=== PATIENT | male | born 1965 | race Caucasian/White ===

== ENCOUNTER 2022-12-28 14:15 | Emergency (ER) | payer OTHER, SELFPAY ==
[2022-12-28 14:17] VITALS: BP 187/99; PULSE 86; RESP 18; TEMP 37.4; O2SAT 95; BMI 24.3
[2022-12-28 14:47] LABS: COVID19 -Nasal RAPID Negative (Negative)
--- NOTE | 2022-12-28 15:08 | ED_ITS ---
HPI - URI/Sore Throat <Chyna Lauren PA-C - Last Filed: 12/28/22 15:17> General Chief Complaint: Upper Respiratory Symptoms Stated Complaint: fever/cough/earache/ T-3 Time Seen by Provider: 12/28/22 14:21 Source: patient Mode of arrival: Ambulatory History of Present Illness HPI Narrative: 57-year-old male presents to the ED with 3 weeks of URI symptoms. Patient states that his symptoms started with a cold and a cough. Patient states that he started experiencing right-sided ear pain 4 days prior to arrival, along with fever and chills. Patient states that he has a dry cough that has persisted. Patient denies chest pain, shortness of breath, nausea, vomiting, abdominal pain, dysuria, diarrhea, lightheadedness, dizziness, syncope. Related Data Previous Rx's Medication Instructions Recorded amoxicillin 875 mg tablet 875 mg PO Q12H 7 days #14 tabs 12/28/22 benzonatate 200 mg capsule 200 mg PO TID PRN cough #30 caps 12/28/22 Allergies Allergy/AdvReac Type Severity Reaction Status Date / Time No Known Drug Allergies Allergy Verified 12/28/22 14:25 Review of Systems <Chyna Lauren PA-C - Last Filed: 12/28/22 15:17> Review of Systems ROS Unobtainable: All systems reviewed & are unremarkable except as noted in HPI and below Constitutional Constitutional: Reports chills, Denies fatigue, Reports fever(s), Denies frequent falls, Denies lethargy and Denies weakness Eyes Eyes: Denies change in vision, Denies eye discharge, Denies irritation and Denies loss of vision ENT Ears, Nose, Mouth, and Throat: Denies change in voice, Denies dizziness, Reports otalgia (right), Denies neck pain, Denies sore throat and Denies throat swelling Cardiovascular Cardiovascular: Denies chest pain, Denies irregular heart rhythm, Denies lightheadedness, Denies palpitations, Denies dyspnea, Denies dyspnea on exertion and Denies orthopnea Respiratory Respiratory: Reports cough, Denies dyspnea, Denies dyspnea on exertion and Denies wheezing Gastrointestinal Gastrointestinal: Denies abdominal pain, Denies change in bowel habits, Denies diarrhea, Denies nausea and Denies vomiting Genitourinary Genitourinary: Denies hematuria, Denies flank pain, Denies urinary incontinence and Denies urinary urgency Musculoskeletal Musculoskeletal: Denies back pain, Denies muscle weakness, Denies neck pain, Denies numbness and Denies tingling Integumentary/Breasts Skin/Breast: Denies pruritus, Denies erythema, Denies rash and Denies wounds Neurologic Neurologic: Denies behavioral changes, Denies confusion, Denies dizziness, De nies frequent falls, Denies loss of vision, Denies numbness, Denies tingling and Denies weakness Psychiatric Psychiatric: Denies anxiety, Denies behavioral changes, Denies confusion, Denies depression, Denies homicidal ideation and Denies suicidal ideation Endocrine Endocrine: Denies fatigue, Denies flushing and Denies palpitations Hematologic/Lymphatic Hematologic/Lymphatic: Denies easy bruising Allergic/Immunologic Allergic/Immunologic: Denies urticaria, Denies throat swelling and Denies wheezing Patient History <Chyna Lauren PA-C - Last Filed: 12/28/22 15:17> Social History Smoking Status: Current every day smoker Smoking Status: Current every day smoker alcohol intake frequency: 3 or more drinks per day Substance Use Type: does not use Exam <Chyna Lauren PA-C - Last Filed: 12/28/22 15:17> Narrative Exam Narrative: Const General:?cooperative, healthy appearing and comfortable [facility] Head:?normal to inspection Ears:?hearing grossly normal bilaterally; right tympanum appears erythematous and bulging; L tympanum normal Nose:?external nose normal Face and sinus:?normal facial exam and sinuses nontender Mouth:?oral mucosae normal Throat:?posterior oropharynx normal Eyes General:?appearance normal, both eyes and all related structures Neck Neck:?normal visual inspection and no lymphadenopathy noted Resp Effort & Inspection:?normal respiratory effort Auscultation:?clear to auscultation bilaterally Cardio Rate:?regular rate Rhythm:?regular rhythm Neuro General:?patient alert, patient awake and patient oriented x3 Initial Vital Signs Initial Vital Signs: Vital Signs Temperature 99.3 F 12/28/22 14:17 Pulse Rate 86 12/28/22 14:17 Respiratory Rate 18 12/28/22 14:17 Blood Pressure 187/99 H 12/28/22 14:17 Pulse Oximetry 95 12/28/22 14:17 Oxygen Delivery Method 12/28/22 14:17 <Tc Ivory DO - Last Filed: 12/28/22 17:54> Initial Vital Signs Initial Vital Signs: Vital Signs Temperature 99.3 F 12/28/22 14:17 Pulse Rate 86 12/28/22 14:17 Respiratory Rate 18 12/28/22 14:17 Blood Pressure 187/99 H 12/28/22 14:17 Pulse Oximetry 95 12/28/22 14:17 Oxygen Delivery Method 12/28/22 14:17 Course <Chyna Lauren PA-C - Last Filed: 12/28/22 15:17> Orders Ordered: ED Orders 12/28/22 14:22 COVID19 -Nasal RAPID/Pre-Proc Stat Vital Signs Vital signs: Vital Signs - 8 hr 12/28/22 14:17 Temperature 99.3 F Pulse Rate 86 Respiratory Rate 18 Blood Pressure 187/99 H Pulse Oximetry 95 Oxygen Delivery Method Room Air <Tc Ivory DO - Last Filed: 12/28/22 17:54> Orders Ordered: ED Orders 12/28/22 14:22 COVID19 -Nasal RAPID/Pre-Proc Stat Vital Signs Vital signs: Vital Signs - 8 hr 12/28/22 14:17 Temperature 99.3 F Pulse Rate 86 Respiratory Rate 18 Blood Pressure 187/99 H Pulse Oximetry 95 Oxygen Delivery Method Room Air MDM - URI/Sore Throat <Chyna Lauren PA-C - Last Filed: 12/28/22 15:17> Lab Data Labs: Lab Results 12/28/22 Range/Units 14:22 SARS-CoV-2 (PCR) Negative (Negative) MDM Narrative Medical decision making narrative: 57-year-old male presents to the ED with 3 weeks of URI symptoms. Concern for viral URI versus acute otitis media versus other. Covid-19 negative. Physical exam consistent with right-sided acute otitis media. Will treat with amoxicillin. Will treat cough with Tessalon Perles. Recommend supportive measures with ibuprofen/Tylenol, good hydration. ED return precautions discussed with patient. Patient verbalized understanding. Medical records reviewed: Yes <DO Alli Holland Last Filed: 12/28/22 17:54> Lab Data Labs: Lab Results 12/28/22 Range/Units 14:22 SARS-CoV-2 (PCR) Negative (Negative) Discharge Plan Departure Patient Disposition: Home Clinical Impression: Otitis media Instructions: Middle Ear Infection Activity Restrictions/Additional Instructions: You were evaluated in the ED today for right ear pain, fever, chills, cough. You have been diagnosed with a middle ear infection of the right ear for which you are being prescribed antibiotics. Please take those as directed. You were also being prescribed Tessalon Perles for your cough. You may take other [id number] medicines such as Tylenol/ibuprofen for symptom relief as well. Continue to stay well hydrated. Return to the ED if you have any chest pain, shortness of breath, ear pain worsens. Prescriptions: New benzonatate 200 mg capsule 200 mg PO TID PRN (Reason: cough) Qty: 30 0RF amoxicillin 875 mg tablet 875 mg PO Q12H 7 Days Qty: 14 0RF Referrals: Willie Guerrero MD [Primary Care Provider] - Stand Alone Forms: Patient Portal/API <Tc Ivory DO - Last Filed: 12/28/22 17:54> Cosign ED Attending Cosignature Attestation: I was immediately available in the department for consultation. This documentation has been reviewed and I agree with assessment and plan. Supervised by Tc Ivory DO
== END 2022-12-28 15:17 | disposition home or self-care (01) ==
PROVIDERS: Emergency Provider Student in an Organized Health Care Education/Training Program; PCP Internal Medicine
DX: H66.91 Otitis media, unspecified, right ear (principal); Z20.822 Contact with and (suspected) exposure to COVID-19
CPT/HCPCS: 87635; 99281; 99282; C9803

== ENCOUNTER 2023-01-05 06:51 | Emergency (ER) | payer OTHER, SELFPAY ==
[2023-01-05 07:04] VITALS: BP 182/95; PULSE 62; RESP 17; TEMP 36.1; O2SAT 96; BMI 24.3
== END 2023-01-05 07:59 | disposition left against medical advice (07) ==
PROVIDERS: Emergency Provider Emergency Medicine; PCP Internal Medicine
CPT/HCPCS: 99281

== ENCOUNTER → 2023-07-13 08:23 | Outpatient (CLI) | payer OTHER, SELFPAY ==
[2023-07-13 09:03] LABS: Add Manual Diff / Slide Review NO; Basophils Absolute Auto 0 /uL (0-100); Basophils Percent Auto 0.7 % (0-2); Eosinophils Absolute Auto 100 /uL (0-450); Eosinophils Percent Auto 2.6 % (2-4); Hematocrit 41.4 % (41-53); Hemoglobin 14.5 g/dL (13.5-17.5); Lymphocytes Absolute Auto 1300 /uL (1100-4500); Lymphocytes Percent Auto 26.2 % (25-40); Mean Corpuscular Hemoglobin 32.7 PG (26-34); Mean Corpuscular Volume 93.7 fL (80-100); Monocytes Absolute Auto 400 /uL (0-900); Monocytes Percent Auto 8.8 % (3-14); Neutrophils Absolute Auto 3000 /uL (1500-7000); Neutrophils Percent Auto 61.7 % (50-75); Platelet Count 243 X10^3/uL (150-400); Red Blood Cell Count 4.42 X10^6/uL (4.5-5.9); White Blood Cell Count 4.9 X10^3/uL (4.5-11.0)
[2023-07-13 09:37] LABS: Alanine Aminotransferase 28 IU/L (<50); Albumin 4.5 g/dL (3.5-5.0); Albumin Globulin Ratio 1.7 (1.0-2.8); Alkaline Phosphatase 46 U/L (38-126); Aspartate Aminotransferase 30 IU/L (17-59); BUN Creatinine Ratio 11.8 (6-22); Bilirubin Total 0.4 mg/dL (0.2-1.3); Blood Urea Nitrogen 9 mg/dL (9-20); Calcium 9.1 mg/dL (8.4-10.2); Carbon Dioxide 21 mmol/L (22-32); Chloride 105 mmol/L (98-107); Cholesterol 289 mg/dL (140-199); Estimated Glomerular Filt Rate > 60 mL/min (>60); Globulin 2.7 g/dL (1.7-4.1); Glucose 91 mg/dL (70-100); HDL Cholesterol 61 mg/dL (40-60); HEMOLYSIS < 15 (0-50); LDL Cholesterol Calculated 193 mg/dL (<100); Potassium 4.2 mmol/L (3.4-5.1); Sodium 140 mmol/L (137-145); Total Protein 7.2 g/dL (6.3-8.2); Triglycerides 175 mg/dL (35-150)
[2023-07-13 09:58] LABS: Prostate Specific Antigen 1.45 ng/mL (0.10-4.00)
[2023-07-14 18:30] LABS: HIV 1 & 2 Ab/Ag 4th Gen Combo NEGATIVE (NEGATIVE)
[2023-07-14 18:34] LABS: Urine N gonorrhoeae NOT DETECTED
[2023-07-14 19:02] LABS: Urine Chlamydia NOT DETECTED
== END ==
PROVIDERS: PCP Family Medicine; Referring Provider Family Medicine; Visit Provider Family Medicine
DX: Z00.00 Encounter for general adult medical examination without abnormal findings (principal); Z11.3 Encounter for screening for infections with a predominantly sexual mode of transmission; E78.5 Hyperlipidemia, unspecified
CPT/HCPCS: 36415; 80053; 80061; 84153; 85025; 87389; 87491; 87522; 87591

== ENCOUNTER → 2023-09-05 16:31 | Outpatient (CLI) | payer OTHER, SELFPAY ==
--- NOTE | 2023-09-05 16:32 | DI.RAD.S_ITS ---
PROCEDURE: XR LUMBAR SPINE MIN 4V INDICATIONS: eval back pain TECHNIQUE: 5 views of the lumbar spine were acquired, including bilateral oblique views. COMPARISON: None. FINDINGS: Bones: 5 nonrib-bearing vertebrae are present. Mild right convexity curvature centered at L3-L4. Possible minimal wedging L5 superior and inferior endplates and or sequela of degenerative change. Moderate multilevel degenerative changes with disc height loss, endplate spurring, and facet arthropathy. Suspect at least mild multilevel bony foraminal narrowing on oblique views. Soft tissues: Overlying bowel gas pattern is normal. No suspicious soft tissue calcifications. IMPRESSION: Multilevel degenerative changes of the lumbar spine. Dictated by: Brett Devries M.D. on 09/05/2023 at 17:13 Approved by: Brett Devries M.D. on 09/05/2023 at 17:15
== END ==
PROVIDERS: PCP Family Medicine; Referring Provider Family Medicine; Visit Provider Family Medicine
DX: M47.816 Spondylosis without myelopathy or radiculopathy, lumbar region (principal); M54.9 Dorsalgia, unspecified
CPT/HCPCS: 72110

== ENCOUNTER 2025-03-29 15:15 | Outpatient (RCR) | payer OTHER, SELFPAY ==
--- NOTE | 2025-03-22 16:19 | PT.OIE ---
Current Diagnoses Low back pain, unspecified (03/22/25) Past Medical History (Last Reviewed 01/31/25 @ 14:23 by Marc Mohamud DO) Acute low back pain Borderline hyperlipidemia Chicken pox (~1982) Hearing loss (~2022) Hyperlipidemia Hypertension (~1988) Mild obstructive sleep apnea Tobacco use disorder Well adult exam Past Surgical History (Last Reviewed 01/31/25 @ 14:23 by Marc Mohamud DO) History of removal of cyst (~2006) History of tonsillectomy (~1969) Visit Care Team Role Provider Type Marc Mohamud DO Attending Provider Physician Family Provider Primary Care Provider Referring Provider Specialty: Family Practice Address: [address] [place] [address] Email: [email or web address] [facility] Initial Evaluation PT-OP-A Visit Information Start: 03/01/25 13:40 Freq: Status: Active Protocol: Document 03/22/25 16:04 KW (Rec: 03/22/25 16:19 KW Laptop) Out-Patient Physical Therapy Visit Information Visit Information Visit Type Initial Evaluation Visit Start Time 15:15 Visit Stop Time 16:00 Visit Number 1 Evaluation Information Evaluation Date 03/22/25 PT-OP-B Current Condition Start: 03/01/25 13:40 Freq: Status: Active Protocol: Document 03/22/25 16:04 KW (Rec: 03/22/25 16:19 KW Laptop) Current Condition History of Current Condition Onset Date 30 days Current Complaints LBP central History of Current Condition h/o LBP that fluctuates from mild to severe. Seen in ED, referred for MRI, given a muscle relaxant that was helpful. Pain is very mild now . h/o 96 jumps with impact. 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 Denies NT in legs, no sleep apnea. Prior Treatments and Tests MRI Treatment Goals Patient/Caregiver Goals have strategies to minimize back spasms PT-OP-C Subjective Start: 03/01/25 13:40 Freq: Status: Active Protocol: Document 03/22/25 16:04 KW (Rec: 03/22/25 16:19 KW Laptop) Patient Questionnaires Oswestry Low Back Index Oswestry Impairment 1 to 19% Impaired (Score 1-19) OP-PT Pain Assessment Pain Assessment Grid Paper Pain Assessment Grid Completed Yes Location lumbar spine Intensity 3 Scale Used Numeric (0 - 10) Description Aching,Cramping,Dull Frequency Intermittent Pain Aggravating Factors ADL's,Standing,Walking Pain Alleviating Factors Cold,Heat,Medication,Sitting, Exercise,Massage PT-OP-D Balance Start: 03/01/25 13:40 Freq: Status: Active Protocol: Document 03/22/25 16:04 KW (Rec: 03/22/25 16:19 KW Laptop) OP-PT Balance Assessment Standing Balance Static Standing Balance Ability Normal Dynamic Standing Balance Ability Normal Gibson Fall Scale Copyright Permission PT-OP-E Functional Tests Start: 03/01/25 13:40 Freq: Status: Active Protocol: Document 03/22/25 16:04 KW (Rec: 03/22/25 16:19 KW Laptop) Functional Tests Single Leg Squat Test Score WNL Comment 90 R L PT-OP-G Mobility & Gait Start: 03/01/25 13:40 Freq: Status: Active Protocol: Document 03/22/25 16:04 KW (Rec: 03/22/25 16:19 KW Laptop) OP Gait Assessment Comments Gait Comments gait: increased heel strike R, decreased on L PT-OP-J Posture/Palpation/Skin Start: 03/01/25 13:40 Freq: Status: Active Protocol: Document 03/22/25 16:04 KW (Rec: 03/22/25 16:19 KW Laptop) Posture Evaluation Comments Posture Comments R shoulder lower L anterior innominate more WB thru R LE vs L Lateral WB thru R foot increased tibial varum R LE flared ribs hyper-inflated lungs/barrel chest PT-OP-K Range of Motion Start: 03/01/25 13:40 Freq: Status: Active Protocol: Document 03/22/25 16:04 KW (Rec: 03/22/25 16:19 KW Laptop) Lumbar Spine Range of Motion Lumbar Spine Active Testing Position Standing Flexion 70 ROM Limitations Soft Tissue Tightness,Bony Restriction Comments fingers to top of ankles pre Rx fingers to toes by end or Rx Hip Goniometric Range of Motion Hip left Hip ROM WFL Yes Straight Leg Raise 75 Comments post Rx 85 SLR right Hip ROM WFL Yes Straight Leg Raise 75 Comments post Rx 85 SLR Hip ROM Limitations Hip ROM Limitations Soft Tissue Tightness,Bony Restriction PT-OP-L Special Tests Start: 03/01/25 13:40 Freq: Status: Active Protocol: Document 03/22/25 16:04 KW (Rec: 03/22/25 16:19 KW Laptop) Special Tests Neural Special Tests- Lower Body Sciatic Nerve Tension Comments (+) Pre Rx, (-) post Rx PT-OP-M Strength Start: 03/01/25 13:40 Freq: Status: Active Protocol: Document 03/22/25 16:04 KW (Rec: 03/22/25 16:19 KW Laptop) Hip Strength Hip Manual Muscle Testing Left Abduction 4 Good Right Abduction 4 Good PT-OP-Q Treatments Start: 03/01/25 13:40 Freq: Status: Active Protocol: Document 03/22/25 16:04 KW (Rec: 03/22/25 16:19 KW Laptop) Therapeutic Exercises Supine Exercises 90 90 hip lift Side bilateral Reps/Minutes x5 Comments YVETTE technique, issued YOU TUBE video for HEP Self-Care/Home Management Treatment Education Patient Education Body Mechanics,Home Exercise Program,Joint Protection,Pain Management,Posture Other Education YVETTE website issued ok to cross R leg over L, not L over R when standing, feel both heels , feel R big toe on ground PT-OP-T Assessment and Plan Start: 03/01/25 13:40 Freq: Status: Active Protocol: Document 03/22/25 16:04 KW (Rec: 03/22/25 16:19 KW Laptop) Physical Therapy Assessment Rehab Potential Rehabilitation Potential Excellent Evaluation Complexity Number of Personal Factors/Comorbidities 1-2 Number of Body Systems Impaired 1-2 Clinical Presentation at Evaluation Stable Impairments Impairments Activity Tolerance,Functional Activities,Functional Mobility ,Posture,ROM,Strength Goals Three Impairment low back pain Short Term Goal (STG) patient no longer has LBP or episodes of spine locking up STG Duration 6 weeks Two Impairment lack of HEP Short Term Goal (STG) pt demonstrates correct HEP and compliance STG Duration 6 weeks One Impairment sitting with poor posture Short Term Goal (STG) patient sits with proper support under knees and low back STG Duration 6 weeks Assessment Summary Assessment pleasant 60 yo male with on/ off LBP presents with patterned positions and movements contributing to increased pain, decreased mobility and strength. He had excellent results with PT Rx today and anticipate I only need to see him one to two more times for HEP progression . Physical Therapy Plan Frequency and Duration Frequency of Treatment 1x/Week Duration of treatment (weeks) 3 Plan of Care Start Date 03/22/25 Plan of Care End Date 05/13/25 Therapeutic Interventions Therapeutic Interventions Gait Training,Home Exercise Program,Manual Therapy, Neuromuscular Re-education, Patient/Caregiver Education, Self-Care/Home Management, Therapeutic Activities, Therapeutic Exercises Modalities Cold Pack/Ice Massage,Electric Stimulation,Hot Packs, Ultrasound Next Visit Focus/Plan Next Note Type Treatment Note Next Visit Plan progress YVETTE HEP look at plank bridge CORE strength
--- NOTE | 2025-03-22 16:19 | PT.OPPOC ---
Physical, Occupational & Speech Therapy At [facility] Current Diagnoses Low back pain, unspecified (03/22/25) Visit Care Team Role Provider Type Marc Mohamud DO Attending Provider Physician Family Provider Primary Care Provider Referring Provider Specialty: Family Practice Address: [address] [place] [address], [facility] Email: [email or web address] Plan Of Care PT-OP-B Current Condition Start: 03/01/25 13:40 Freq: Status: Active Protocol: Document 03/22/25 16:04 KW (Rec: 03/22/25 16:19 KW Laptop) Current Condition History of Current Condition Onset Date 30 days Current Complaints LBP central History of Current Condition h/o LBP that fluctuates from mild to severe. Seen in ED, referred for MRI, given a muscle relaxant that was helpful. Pain is very mild now . h/o 96 jumps with impact. 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 Denies NT in legs, no sleep apnea. Prior Treatments and Tests MRI Treatment Goals Patient/Caregiver Goals have strategies to minimize back spasms PT-OP-T Assessment and Plan Start: 03/01/25 13:40 Freq: Status: Active Protocol: Document 03/22/25 16:04 KW (Rec: 03/22/25 16:19 KW Laptop) Physical Therapy Assessment Rehab Potential Rehabilitation Potential Excellent Evaluation Complexity Number of Personal Factors/Comorbidities 1-2 Number of Body Systems Impaired 1-2 Clinical Presentation at Evaluation Stable Impairments Impairments Activity Tolerance,Functional Activities,Functional Mobility ,Posture,ROM,Strength Goals Three Impairment low back pain Short Term Goal (STG) patient no longer has LBP or episodes of spine locking up STG Duration 6 weeks Two Impairment lack of HEP Short Term Goal (STG) pt demonstrates correct HEP and compliance STG Duration 6 weeks One Impairment sitting with poor posture Short Term Goal (STG) patient sits with proper support under knees and low back STG Duration 6 weeks Assessment Summary Assessment pleasant 60 yo male with on/ off LBP presents with patterned positions and movements contributing to increased pain, decreased mobility and strength. He had excellent results with PT Rx today and anticipate I only need to see him one to two more times for HEP progression . Physical Therapy Plan Frequency and Duration Frequency of Treatment 1x/Week Duration of treatment (weeks) 3 Plan of Care Start Date 03/22/25 Plan of Care End Date 05/13/25 Therapeutic Interventions Therapeutic Interventions Gait Training,Home Exercise Program,Manual Therapy, Neuromuscular Re-education, Patient/Caregiver Education, Self-Care/Home Management, Therapeutic Activities, Therapeutic Exercises Modalities Cold Pack/Ice Massage,Electric Stimulation,Hot Packs, Ultrasound Next Visit Focus/Plan Next Note Type Treatment Note Next Visit Plan progress YVETTE HEP look at plank bridge CORE strength Plan of Care Dates Plan of Care Start Date 03/22/25 Plan of Care End Date 05/13/25 Electronically Signed by: Romana Laird, JEANETTE 03/22/25 0680 If you are in agreement with this Plan of Care, please return a signed and dated copy. I have reviewed this Plan of Care and certify that the skilled therapy services above are required to meet the patient?s needs. Physician Signature Date Printed Name and Credentials Clinical Instructor Signature Printed Name and Credentials
--- NOTE | 2025-03-29 15:56 | PT.OTN ---
Current Diagnoses Low back pain, unspecified (03/29/25) Physical Therapy Treatment Note PT-OP-A Visit Information Start: 03/01/25 13:40 Freq: Status: Active Protocol: Document 03/29/25 15:49 KW (Rec: 03/29/25 15:55 KW Laptop) Out-Patient Physical Therapy Visit Information Visit Information Visit Type Treatment Note Visit Start Time 15:15 Visit Stop Time 15:45 Visit Number 2 Evaluation Information Evaluation Date 03/22/25 PT-OP-B Current Condition Start: 03/01/25 13:40 Freq: Status: Active Protocol: Document 03/22/25 16:04 KW (Rec: 03/22/25 16:19 KW Laptop) Current Condition History of Current Condition Onset Date 30 days Current Complaints LBP central History of Current Condition h/o LBP that fluctuates from mild to severe. Seen in ED, referred for MRI, given a muscle relaxant that was helpful. Pain is very mild now . h/o 96 jumps with impact. 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 Denies NT in legs, no sleep apnea. Prior Treatments and Tests MRI Treatment Goals Patient/Caregiver Goals have strategies to minimize back spasms PT-OP-C Subjective Start: 03/01/25 13:40 Freq: Status: Active Protocol: Document 03/29/25 15:49 KW (Rec: 03/29/25 15:55 KW Laptop) OP-PT Subjective Patient Comments Patient Comments all symptoms have resolved PT-OP-D Balance Start: 03/01/25 13:40 Freq: Status: Active Protocol: Document 03/22/25 16:04 KW (Rec: 03/22/25 16:19 KW Laptop) OP-PT Balance Assessment Standing Balance Static Standing Balance Ability Normal Dynamic Standing Balance Ability Normal Gibson Fall Scale Copyright Permission PT-OP-E Functional Tests Start: 03/01/25 13:40 Freq: Status: Active Protocol: Document 03/22/25 16:04 KW (Rec: 03/22/25 16:19 KW Laptop) Functional Tests Single Leg Squat Test Score WNL Comment 90 R L PT-OP-G Mobility & Gait Start: 03/01/25 13:40 Freq: Status: Active Protocol: Document 03/22/25 16:04 KW (Rec: 03/22/25 16:19 KW Laptop) OP Gait Assessment Comments Gait Comments gait: increased heel strike R, decreased on L PT-OP-J Posture/Palpation/Skin Start: 03/01/25 13:40 Freq: Status: Active Protocol: Document 03/22/25 16:04 KW (Rec: 03/22/25 16:19 KW Laptop) Posture Evaluation Comments Posture Comments R shoulder lower L anterior innominate more WB thru R LE vs L Lateral WB thru R foot increased tibial varum R LE flared ribs hyper-inflated lungs/barrel chest PT-OP-K Range of Motion Start: 03/01/25 13:40 Freq: Status: Active Protocol: Document 03/22/25 16:04 KW (Rec: 03/22/25 16:19 KW Laptop) Lumbar Spine Range of Motion Lumbar Spine Active Testing Position Standing Flexion 70 ROM Limitations Soft Tissue Tightness,Bony Restriction Comments fingers to top of ankles pre Rx fingers to toes by end or Rx Hip Goniometric Range of Motion Hip left Hip ROM WFL Yes Straight Leg Raise 75 Comments post Rx 85 SLR right Hip ROM WFL Yes Straight Leg Raise 75 Comments post Rx 85 SLR Hip ROM Limitations Hip ROM Limitations Soft Tissue Tightness,Bony Restriction PT-OP-L Special Tests Start: 03/01/25 13:40 Freq: Status: Active Protocol: Document 03/22/25 16:04 KW (Rec: 03/22/25 16:19 KW Laptop) Special Tests Neural Special Tests- Lower Body Sciatic Nerve Tension Comments (+) Pre Rx, (-) post Rx PT-OP-M Strength Start: 03/01/25 13:40 Freq: Status: Active Protocol: Document 03/22/25 16:04 KW (Rec: 03/22/25 16:19 KW Laptop) Hip Strength Hip Manual Muscle Testing Left Abduction 4 Good Right Abduction 4 Good PT-OP-Q Treatments Start: 03/01/25 13:40 Freq: Status: Active Protocol: Document 03/29/25 15:49 KW (Rec: 03/29/25 15:55 KW Laptop) Therapeutic Exercises Supine Exercises LE stretching Supine Exercise Name supine hamstring with strap, NAOMY, piriformis, LTR Side bilateral Reps/Minutes 30 sec holds 90 90 hip lift Side bilateral Reps/Minutes x5 Comments YVETTE technique, issued [employer] video for HEP Other Exercises plank Other Exercise Name high plank and low plank Reps/Minutes 60 sec holds Manual Therapy Treatment Consent Patient gave verbal consent for manual Yes treatment Joint Mobilizations PAs Joint T spine, L spine Grade III Manual Techniques prone hip stretching Type prone quad, prone hip IR/ER Body Position Supine Reps/Duration 3o sec holds Self-Care/Home Management Treatment Education Patient Education Body Mechanics,Home Exercise Program,Joint Protection,Pain Management,Posture Other Education YVETTE website issued ok to cross R leg over L, not L over R when standing, feel both heels , feel R big toe on ground PT-OP-T Assessment and Plan Start: 03/01/25 13:40 Freq: Status: Active Protocol: Document 03/29/25 15:49 KW (Rec: 03/29/25 15:55 KW Laptop) Physical Therapy Assessment Rehab Potential Rehabilitation Potential Excellent Impairments Impairments Activity Tolerance,Functional Activities,Functional Mobility ,Posture,ROM,Strength Goals Three Impairment low back pain Short Term Goal (STG) patient no longer has LBP or episodes of spine locking up STG Duration 6 weeks Two Impairment lack of HEP Short Term Goal (STG) pt demonstrates correct HEP and compliance STG Duration 6 weeks One Impairment sitting with poor posture Short Term Goal (STG) patient sits with proper support under knees and low back STG Duration 6 weeks Assessment Summary Assessment resolution of symptoms. no anticipated further PT needed, he will verbally check back with me in 1 month. if no episodes, then DC from PT Physical Therapy Plan Frequency and Duration Frequency of Treatment 1x/Week, prn Duration of treatment (weeks) 3 Plan of Care Start Date 03/22/25 Plan of Care End Date 05/13/25 Therapeutic Interventions Therapeutic Interventions Gait Training,Home Exercise Program,Manual Therapy, Neuromuscular Re-education, Patient/Caregiver Education, Self-Care/Home Management, Therapeutic Activities, Therapeutic Exercises Modalities Cold Pack/Ice Massage,Electric Stimulation,Hot Packs, Ultrasound Next Visit Focus/Plan Next Note Type Treatment Note Next Visit Plan progress YVETTE HEP look at plank bridge CORE strength
== END 2025-07-24 13:38 | disposition home or self-care (01) ==
LOC: PHYS 15:15
PROVIDERS: Family Provider Family Medicine; PCP Family Medicine; Referring Provider Family Medicine; Visit Provider Family Medicine
DX: M54.50 Low back pain, unspecified (principal)
CPT/HCPCS: 97110; 97140; 97161; 97535

== ENCOUNTER → 2025-09-09 09:41 | Outpatient (CLI) | payer OTHER, SELFPAY ==
[2025-09-09 11:09] LABS: Hemoglobin A1C% w Est Avg Glu 5.0 % (4.0-6.0)
[2025-09-09 11:24] LABS: Alanine Aminotransferase 35 IU/L (<50); Albumin 4.8 g/dL (3.5-5.0); Albumin Globulin Ratio 1.8 (1.0-2.8); Alkaline Phosphatase 54 U/L (38-126); Blood Urea Nitrogen 9 mg/dL (9-20); Calcium 9.6 mg/dL (8.4-10.2); Carbon Dioxide 28 mmol/L (22-32); Chloride 103 mmol/L (98-107); Cholesterol 191 mg/dL (140-199); Estimated Glomerular Filt Rate > 60 mL/min (>60); Globulin 2.7 g/dL (1.7-4.1); Glucose 94 mg/dL (70-99); HDL Cholesterol 57 mg/dL (40-60); HEMOLYSIS < 15 (0-50); Potassium 4.6 mmol/L (3.4-5.1); Sodium 140 mmol/L (137-145); Total Protein 7.5 g/dL (6.3-8.2); Triglycerides 201 mg/dL (35-150)
[2025-09-09 11:54] LABS: Prostate Specific Antigen 7.81 ng/mL (0.10-4.00)
[2025-09-09 11:55] LABS: TSH w/ Reflex to FT4 2.23 uIU/mL (0.47-4.68)
== END ==
PROVIDERS: Family Provider Family Medicine; PCP Family Medicine; Referring Provider Family Medicine; Visit Provider Family Medicine
DX: I10 Essential (primary) hypertension (principal); N63.0 Unspecified lump in unspecified breast; E78.00 Pure hypercholesterolemia, unspecified
CPT/HCPCS: 36415; 80053; 80061; 83036; 84153; 84443

== ENCOUNTER → 2025-10-16 09:06 | Outpatient (CLI) | payer OTHER, SELFPAY | PROVIDERS: Family Provider Family Medicine; PCP Family Medicine; Referring Provider Family Medicine; Visit Provider Family Medicine | DX: R97.20 Elevated prostate specific antigen [PSA] (principal) | CPT/HCPCS: 36415; 84153; 84154 ==